=== PATIENT | male | born 1970 | race Caucasian/White ===

== ENCOUNTER → 2017-01-26 | Outpatient (CLI) | payer OTHER ==
[~2017-01-26] MED LIST: ACET-1256 PO; GLC500 PO; INSUINJ4 SQ; LISI-725 PO; OMEP40CA41 PO
--- NOTE | 2017-01-27 06:06 | PAP/PSG TECHNICIAN REPORT ---
[facility] Lead Janitor Polysomnogram Report Study name: None Report date: 01/27/2017 Study date: 01/26/2017 Referring Physician: Zbigniew HANEY M.D. Name: NASIM BEST Interpreting Physician: Maria Antonia Haney M.D. Date of : 1970 Lead Janitor: Kay Burciaga RPSGT. Sex: Male Age: 46 Study Type: PSG Weight: 288 lbs 18 IN Height: 46 years, Height 5' 8" Neck Circum: BMI: 43.79 Medications: LISINOPRIL 40 MG, VICTOZA 18 ML/3 ML, METFORMIN 500 MG, LEVEMIR FLEX PEN 100 UNI/ML, PANTOPRAZOLE 40 MG, SIMVASTATIN 40 MG, ASPIRIN 81 MG Patient History 46 yr-old male here for a baseline/split study. He has had previous sleep testing. 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 He is back to assess his XANDER and is considering gastric bypass surgery. His [place] scale is 4. The test was started on room air. ETCO2 testing is included in this study. Room 3 Parameters Monitored NPSG: E1-M2, E2-M1, Fp1-M2, Fp2-M1, F3-M2, F4-M2, F4-M1, C3-M2, C4-M2, C4-M1, O1-M2, O2-M2, O2-M1, T3-M2, T4-M1, P3-M2, P4-M1, CHIN1, CHIN2, HR, EKG, Legs, PFLOW, SNOR, FLOW, CFLOW, Tidal Volume, THOR, ABDO, SpO2, PLTH, CPRESS, ETCO2 Wave, ETCO2, pH Sleep Architecture Sleep Stages Time at Lights Off 10:36:31 PM STAGES Time (min.) TST (%) Time at Lights On 5:32:01 AM Wake 142.0 -- Total Recording Time (TRT) 415.50 min. N1 17.0 6 Total Sleep Period (TSP) 380.5 min. N2 214.5 78 Total Sleep Time (TST) 273.5min. N3 19.5 7 Awake Time 142.0 min. REM 22.5 8 Wake after Sleep Onset 107.0 min. Sleep Efficiency (SE) 66 % Sleep Onset Latency (JILLIAN) 35.0 min. Number of Stage 1 Shifts None Awakenings 7 Stage Changes 53 Number of REM periods 2 REM 22.5 8 REM Latency 81.5 min. NREM 251.0 92 Body Position Analysis Supine Right Left Side Prone Vertical Total Sleep Time (min.) 19.1 201.5 72.0 273.50 0.0 0.6 Total Sleep Time (%) 0% 74% 26% 100 0% N/A% Total Sleep Time REM (min.) 0.0 0.5 22.0 None 0.0 0.0 Total Sleep Time NREM (min.) 0.0 201.0 50.0 None 0.0 0.0 Intermittent Wake (min.) 19.1 67.1 55.2 None 0.0 0.6 Total Sleep Period (%) 0% None None None None None Arousals Myoclonus (PLM) * Events Count Index Events Count Index Spontaneous 8 2 Events Awake (PLMW) 136 57.5 Respiratory 5 1.3 Events Asleep w/ Arousal (PLMA) 7 1.5 PLM 7 2 Events Asleep w/o Arousal (PLMS) 23 5.0 Snoring 9 2 Total Asleep 30 6.6 Total 27 6 Total 166 24 Respiratory Analysis * CA OA MA CH H RERA Total Count 0 0 0 0 22 5 22 Index 0.0 0.0 0.0 0 4.8 1 5.9 Mean Duration 0.0 0.0 0.0 0.00 14.7 14.9 14.7 Longest Duration 0.0 0.0 0.0 0.00 0.0 16.5 18.9 Respiratory Event Summary Total Supine ~Supine Right Left Prone REM NREM Apneas Count 0 N/A 0 0 0 N/A 0 0 Index 0.0 N/A 0 0.0 0.0 N/A 0 0 Hypopneas (4% Desat) Count 22 N/A 22 7 15 N/A 13 9 Index 4.8 N/A 5 2.1 12.5 N/A 34.7 2.2 Apneas & All Hypopneas Count 22 N/A 22 7 15 N/A 13 9 Index 4.8 N/A 5 2 13 N/A 34.7 2.2 Respiratory Events (Reworker+All Hyp+RERA) Count 22 N/A 27 12 15 N/A 13 9 Index 5.9 N/A 6 3.6 12.5 N/A 34.7 3.3 Respiratory Related Arousal Count 5 N/A 6 6 0 N/A 1 5 Index 1.3 N/A 1 2 0 N/A 3 1 Snoring Analysis Supine Right Left Prone REM NREM Total Snore duration 48.3 min Snores count N/A 1,871 570 N/A 105 2,336 2,441 Snore mean duration 1.2 Sec Snores index N/A 557 475 N/A 280.0 558.4 535.5 TST with snoring (%) 17.7% SpO2 Analysis Total REM NREM Awake <50% 0.0 min. 0.0 min. 0.0 min. 0.0 min. 51 - 60% 0.0 min. 0.0 min. 0.0 min. 0.0 min. 61 - 70% 0.0 min. 0.0 min. 0.0 min. 0.0 min. 71 - 80% 0.0 min. 0.0 min. 0.0 min. 0.0 min. 81 - 90% 194.5 min. 13.4 min. 146.5 min. 34.6 min. 91 - 100% 215.9 min. 9.1 min. 104.5 min. 102.2 min. Average 91 90 90 92 Minimum SpO2 84 84 86 85 Desaturation Event Index 10.0 37.3 3.8 16.5 # Desat. Events below 89% 37 13 13 11 Time(%) with Saturation below 89% 3.9 0.7 2.5 0.6 Time(min.) with Saturation below 89% 15.9 3.0 10.4 2.5 Heart Rate Analysis End Tidal CO2 Analysis Min (bpm) Max (bpm) Average (bpm) TSP (mins) % of TSP Awake 61 250 84 Above 55 mmHg 0.0 0.0 NREM 69 104 81 50-55 mmHg 0.0 0.0 REM 72 87 79 45-50 mmHg 20.8 7.6 Overall 69 104 81 40-45 mmHg 246.7 90.2 35-40 mmHg 5.6 2.0 30-35 mmHg 0.2 0.1 Average ETCO2 0.0 Supplemental O2 Values Minimum O2 level: None Value Start Time End Time Lead Janitor Comments Mr. Best slept in the right and left positions. No cardiac arrhythmias or PLMs noted. No bruxism noted. Snoring was noted and scored as a 3 on a scale of 1 through 5. (0=no snoring, 5=snoring loud enough to be heard through a closed door or down the nguyen way). He did not meet specific Split-Night criteria during the diagnostic portion of this study. He awoke to use the restroom one time during the night. Mr. Best stated that he did not sleep as well as he usually does The final report will be interpreted and signed by a sleep physician. The completed physician report will then be placed in the patient medical record. Therapy (cm H2O) 0 TIB (min.) 415.5 TST (min.) 273.5 Sleep Onset (min.) 35.0 REM Onset From Sleep (min.) 81.5 Sleep Efficiency % 66 Wakefulness (%) 34 Wakefulness (min.) 142.0 NREM 1 (%) 6 NREM 1 (min.) 17.0 NREM 2 (%) 78 NREM 2 (min.) 214.5 NREM 3 (%) 7 NREM 3 (min.) 19.5 REM (%) 8 REM (min.) 22.5 # Arousals 27 Arousal Index 6 # Snore 2,441 Snore Index 535.5 AHI 4.8 AHI Supine N/A AHI Non-Supine 5 NREM AHI 2.2 REM AHI 34.7 RDI 5.9 # Obstructive Apnea 0 # Central Apnea 0 # Mixed Apnea 0 # Hypopneas 22 RERAs 5 Total Respiratory Events 27 Time Below SpO2 89% (min.) 13.4 Mean NREM SpO2 (%) 90 Mean REM SpO2 (%) 90 Mean Sleep SpO2 (%) 90 Min NREM SpO2 (%) 86 Min REM SpO2 (%) 84 Position Supine (min.) 19.1 Position Non-supine (min.) 273.5 LM Index Sleep 6.6 LM Index NREM 7.2 LM Index REM 0.0 Mean Heart Rate (bpm) 81 Min Heart Rate (bpm) 69
--- NOTE | 2017-02-08 08:32 | POLYSOMNOGRAPH REPORT ---
REFERRING PERSON: Dr. Bam Haney. MATERIAL REQUIREMENTS WORKER: Kay Burciaga. Mr. Morgan is a 46-year-old male sent for a possible split night sleep study. He had previous sleep testing. It showed that he had mild sleep apnea with an AHI of 5. He returns for reassessment of possible XANDER as he is considering gastric bypass surgery. His [place] sleepiness scale score on the evening of this study is 4. BMI is 43.79. Following the technical and digital specifications of the [place] [employer] (AASM) a standard diagnostic polysomnogram was performed monitoring EEG, EOG, EMG (chin and leg deviations), oxygen saturation, body position, digital video, respiratory effort and airflow. The sleep Stage and event scoring was based on the AASM Manual for the Scoring of Sleep and Associated Events 2007 edition. Apneas are defined as a drop in the peak thermal sensor excursion by >90% of baseline for at least 10 seconds. Hypopneas were scored using the 4% oxygen desaturation rule (4A-[employer]) and a decrease in the nasal pressure excursions by >30% of baseline for at least 10 seconds. Respiratory effort-related arousal (RERA's) is defined as a sequence of breaths lasting at least 10 seconds characterized by increasing respiratory effort or flattening of the nasal pressure waveform leading to an arousal from sleep when the sequence of breaths does not meet criteria for an apnea or hypopnea. Apnea Hypopnea index (AHI) is defined as the number of apneas and hypopneas occurring in an hour of sleep. Respiratory disturbance index (RDI) is defined as the number of apneas, hypopneas, and RERA's occurring in an hour of sleep. This patient's total sleep period time was 380.5 minutes. Total sleep time was 273.5 minutes. Sleep efficiency was 66%. Latency to sleep onset was 35 minutes with wake after sleep onset of 107 minutes. Total non-REM sleep time was 251 minutes. He spent 6% of that time in N1 sleep, 78% in N2 sleep, and 7% in N3 sleep. REM latency was 81.5 minutes. Total REM sleep time was 22.5 minutes or 8% of total sleep time. There were 27 cortical arousals from sleep. Nine of these arousals were due to snoring, 7 due to periodic limb movements, 5 due to respiratory events and 8 were spontaneous. There were 30 periodic limb movements noted on this test. Limb movement index was 6.6. Limb movement with arousal index was 1.5. There were no central obstructive or mixed apneas on this test. There were 22 hypopnea and 5 RERA. Apnea-hypopnea index was normal at 4.8. RDI was 5.9. This patient does appear to have an element of upper respiratory resistance. 2441 snoring events were recorded. Total sleep time with snoring was 17.7%. Mean saturation was 91% with desaturations to 84%. Saturations were less than 89% for 15.9 minutes of recorded time. This is significant nocturnal hypoxemia. There was no cardiac ectopy noted on this study. This patient's heart rates ranged from a low of 69 beats per minute to a high of 104 beats per minute during sleep. End-tidal CO2 was recorded on this test. End-tidal CO2s were between 45 and 50 mmHg for 7.6% of total sleep period time, between 40 and 45 mmHg for 90.2%, between 35 and 40 mmHg for 2% and between 30 and 35 mmHg for 0.1% of total sleep period time. IMPRESSION AND PLAN: A 46-year-old male without evidence of sleep disordered breathing on this test. He does have an element of mild nocturnal hypoxemia as well as upper airway resistance syndrome. 1. This patient may benefit from oxygen therapy at bedtime. I suspect that if his weight improves, his nocturnal hypoxemia will also improve. Overnight oximetry on oxygen therapy would be helpful to ensure hypoxemia does resolve with treatment.
== END ==
LOC: C.NEUR 21:00
PROVIDERS: ATTEND Family Medicine
DX: G47.33 Obstructive sleep apnea (adult) (pediatric) (principal)

== ENCOUNTER 2018-12-24 12:53 | Inpatient (IN) ==
[2018-12-24] MEDS ORDERED: ACETAMINOPHEN 500 MG TAB PO STA (13:09)
[2018-12-24] MEDS ORDERED: KETOROLAC 30 MG/ML VIAL IV STA (13:09)
[2018-12-24] MEDS ORDERED: SODIUM CHLORIDE 0.9% 1000ML 2,000 ML IV ONE (13:09)
[2018-12-24] MEDS ORDERED: SODIUM CHLORIDE 0.9% 1000ML 1,000 ML IV SCH (13:15)
[2018-12-24 13:31] LABS: Basophils # (auto) 0.02 K/uL (0-0.2); Basophils % (auto) 0.2 %; Eosinophils # (auto) 0.15 K/uL (0-0.5); Eosinophils % (auto) 1.5 %; Hematocrit (blood only) 44.7 % (42-52); Hemoglobin 15.1 g/dL (14.0-18.0); Immature Granulocytes # (auto) 0.03 K/uL (0.00-0.02); Immature Granulocytes % (auto) 0.3 %; Lymphocytes # (auto) 2.04 K/uL (1.2-3.4); Lymphocytes % (auto) 21.1 %; Mean Corpuscular Hgb Conc 33.8 g/dL (32-36); Mean Corpuscular Volume 83.1 fL (80-100); Mean Platelet Volume 10.9 fL (7.4-10.4); Monocytes # (auto) 1.02 K/uL (0.11-0.59); Monocytes % (auto) 10.5 %; Neutrophils # (auto) 6.43 K/uL (1.4-6.5); Neutrophils % (auto) 66.4 %; Platelet Count 217 K/uL (130-400); RDW Coefficient of Variation 14.2 % (11.5-14.5); RDW Standard Deviation 42.9 fL (36.4-46.3); Red Blood Count 5.38 M/uL (4.7-6.1); White Blood Count 9.69 K/uL (4.8-10.8)
[2018-12-24] MEDS ORDERED: DOXYCYCLINE HYCLATE 100 MG CAP PO STA (13:31)
[2018-12-24 13:48] LABS: Albumin Level 3.5 gm/dl (3.4-5.0); BUN Creatinine Ratio 12.3 (10-20); Calcium 8.6 mg/dl (8.5-10.1); Creatinine Clr Calc Pharmacy 45.5 ml/min; Est GFR (African American) 42.1; Est GFR (Non-African American) 36.3; Potassium 4.2 mmol/L (3.5-5.1)
[2018-12-24 14:00] LABS: Albumin Globulin Ratio 0.9 (0.9-2); Bilirubin,Total 0.7 mg/dl (0.2-1); Total Protein 7.5 gm/dl (6.4-8.2); Troponin I 0.057 ng/ml (0-0.045)
[2018-12-24 14:04] LABS: Influenza A virus by PCR Neg for Influ A (Neg); Influenza B virus by PCR Neg for Influ B (Neg)
--- NOTE | 2018-12-24 14:19 | XRay Report ---
XR chest 1V not portable CLINICAL HISTORY: weakness COMPARISON STUDY: 12/29/2015 FINDINGS: The cardiac and mediastinal contours are normal. There is no evidence of focal pulmonary co nsolidation. There is no evidence of failure. No pleural effusions are visualized.[ IMPRESSION: No active disease in the chest. Electronically signed by: Prasanna Rodney M.D. 12/24/2018 2:17 PM
--- NOTE | 2018-12-24 14:20 | XRay Report ---
XR lumbar spine 2-3V CLINICAL HISTORY: Low back pain, weakness, history of tic bite COMPARISON STUDY: No previous studies for comparison. FINDINGS: There are minor degenerative changes. No acute fractures or subluxations are visualized. Th ere is mild gaseous prominence of the bowel. No transition zones are evident. There are surgical clip s within the right upper quadrant consistent with a prior cholecystectomy. There are upper quadrant s uture lines, suggestive of a prior gastric bypass. IMPRESSION: No fractures or subluxations identified. Minor degenerative change. Electronically signed by: Prasanna Rodney M.D. 12/24/2018 2:18 PM
[2018-12-24] MEDS ORDERED: DEXTROSE 50% 50 ML SYRINGE IV ONE (14:23)
[2018-12-24 14:42] LABS: Lyme Ab IgG w/WB Rflx Negative (Negative); Lyme Ab IgM w/WB Rflx Negative (Negative)
[2018-12-24 14:52] LABS: Appearance Urine Turbid (Clear); Bacteria Urine Automated Negative (Negative); Blood Urine Negative (Negative); Color Urine Dark Yellow; Epithelial Cell Urine Auto >30 /lpf (0-5); Glucose Urine UA Negative (Negative); Ketones Urine 1+ (Negative); Leukocyte Esterase Urine 1+ (Negative); Nitrite Urine Positive (Negative); Protein Urine 2+ (Negative); Specific Gravity Urine 1.034 (1.000-1.030); Urobilinogen Urine Negative (Negative)
[2018-12-24 14:58] LABS: Bilirubin Urine 2+ (Negative)
[2018-12-24 15:00] LABS: Ictotest Urine Positive (Negative)
--- NOTE | 2018-12-24 15:09 | Emergency Department Note ---
Entered by Christy Gomez acting as a scribe for History of Present Illness General Chief complaint: Illness Stated complaint: FATIGUE,CLOUDY MIND,PAIN,NAUSEA,LOSS OF APPETITE Time Seen by Provider: 12/24/18 12:59 Source: patient History of Present Illness Provider complaint: dizziness Onset (ago): day(s) (yesterday) Location: head Pain Consistency: + other (persistent) Maximum Pain Intensity: 7 Quality: + other (dizziness) Associated symptoms: + other (nausea, ) Treatments prior to arrival: other (acetaminophen) The patient is a 48 year old white male w/ PMHx s/p gastric bypass and depression who presents to the ED w/ CC of persistent dizziness beginning yesterday. He reports a history of similar dizziness, and states he was told he had a low red blood cell count, but does not think he received blood transfusion. The patient notes headache and diffuse body aches, worst in his lower back. He reports nausea. The patient reports he had been urinating more frequently, which has seemed to resolve. He notes episodes of sweatiness. The patient denies blood in urine, bloody or tarry stools. He reports he found a tick on his left leg yesterday, and was out hiking 5 days ago. The patient states he took 2 Acetaminophen for his headache. He denies contact with anyone who has similar symptoms. Home Medications Home Medications Medication Instructions Recorded Confirmed Type aspirin 81 mg PO DAILY 12/24/18 12/24/18 History bupropion HCl 150 mg PO DAILY 12/24/18 12/24/18 History calcium carbonate-vitamin D3 1 tab PO BID 12/24/18 12/24/18 History [Caltrate 600 + D] escitalopram oxalate 20 mg PO DAILY 12/24/18 12/24/18 History omeprazole 40 mg PO DAILY 12/24/18 12/24/18 History pediatric multivitamin no.76 1 tab PO DAILY 12/24/18 12/24/18 History [Flintstones Complete] simvastatin 40 mg PO HS 12/24/18 12/24/18 History trazodone 150 mg PO HS 12/24/18 12/24/18 History Allergies Allergy/AdvReac Type Severity Reaction Status Date / Time fluoxetine [From Prozac] Allergy Unknown Verified 12/24/18 14:38 Past Med/Surg History Medical History HTN (hypertension) (Chronic) History of diabetes mellitus resolved following bariatric surgery (Chronic) SUMNER (nonalcoholic steatohepatitis) (Chronic) Depression (Chronic) GERD (gastroesophageal reflux disease) (Chronic) XANDER (obstructive sleep apnea) (Chronic) HLD (hyperlipidemia) (Chronic) Depression (Chronic) Anxiety (Chronic) Dyslipidemia (Chronic) GERD (gastroesophageal reflux disease) (Chronic) Surgical History H/O gastric bypass (Chronic) History of cholecystectomy (Chronic) H/O hand surgery (Chronic) H/O colonoscopy (Chronic) History of gastric bypass (Chronic) Family History Father Diabetes Sister Diabetes Social History Preferred Language: Bulgarian Communication Ability: Effective 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 and A total of 10 systems reviewed and were otherwise negative Physical Exam Vital Signs Vital Signs - 24 hr 12/24/18 12:56 12/24/18 13:12 12/24/18 13:25 Temperature 36.3 C L Temperature Source Oral Sepsis Recent Fever Within 48 Hours No Sepsis Action Taken by Nursing No Action Required Pulse Rate 123 H Pulse Rate [Apical] 78 Pulse Rhythm [Apical] Pulse Strength [Apical] Respiratory Rate 18 18 Respiratory Effort / Characteristics Non-Labored Spontaneous Non-Labored Spontaneous Respiratory Depth Normal Normal Respiratory Pattern Regular Blood Pressure - Sitting Blood Pressure- Standing Blood Pressure 97/71 L Blood Pressure [Left Arm] 90/65 L Blood Pressure Mean 79 Blood Pressure Mean [Left Arm] 73 Blood Pressure Position Sitting Blood Pressure Position [Left Arm] Pulse Oximetry 97 95 100 Pulse Oximetry [Right Index Finger] Oxygen Delivery Method Room Air Room Air Oxygen Delivery Method [Right Index Finger] 12/24/18 14:18 12/24/18 15:30 12/24/18 16:40 Temperature Temperature Source Sepsis Recent Fever Within 48 Hours Sepsis Action Taken by Nursing Pulse Rate Pulse Rate [Apical] 67 64 Pulse Rhythm [Apical] Pulse Strength [Apical] Respiratory Rate 20 19 Respiratory Effort / Characteristics Non-Labored Spontaneous Non-Labored Respiratory Depth Normal Normal Respiratory Pattern Regular Regular Blood Pressure - Sitting Blood Pressure- Standing Blood Pressure Blood Pressure [Left Arm] 119/72 105/62 Blood Pressure Mean Blood Pressure Mean [Left Arm] 87 76 Blood Pressure Position Blood Pressure Position [Left Arm] Pulse Oximetry 98 97 Pulse Oximetry [Right Index Finger] Oxygen Delivery Method Room Air Room Air Room Air Oxygen Delivery Method [Right Index Finger] 12/24/18 17:05 12/24/18 17:09 12/24/18 17:27 Temperature 36.6 C Temperature Source Oral Sepsis Recent Fever Within 48 Hours Sepsis Action Taken by Nursing Pulse Rate Pulse Rate [Apical] 65 60 Pulse Rhythm [Apical] Regular Pulse Strength [Apical] Normal Respiratory Rate 20 18 Respiratory Effort / Characteristics Non-Labored Non-Labored Spontaneous Respiratory Depth Normal Normal Respiratory Pattern Regular Regular Blood Pressure - Sitting 109/70 Blood Pressure- Standing 105/68 Blood Pressure Blood Pressure [Left Arm] 117/81 130/82 Blood Pressure Mean Blood Pressure Mean [Left Arm] 93 98 Blood Pressure Position Blood Pressure Position [Left Arm] Sitting Pulse Oximetry 100 98 Pulse Oximetry [Right Index Finger] 100 Oxygen Delivery Method Room Air Room Air Oxygen Delivery Method [Right Index Finger] Room Air 12/24/18 19:47 12/24/18 20:10 12/24/18 23:31 Temperature 36.6 C 36.6 C Temperature Source Oral Oral Sepsis Recent Fever Within 48 Hours Sepsis Action Taken by Nursing Pulse Rate Pulse Rate [Apical] 61 62 Pulse Rhythm [Apical] Pulse Strength [Apical] Respiratory Rate 20 18 Respiratory Effort / Characteristics Non-Labored Spontaneous Respiratory Depth Normal Respiratory Pattern Regular Blood Pressure - Sitting Blood Pressure- Standing Blood Pressure Blood Pressure [Left Arm] 110/70 114/71 Blood Pressure Mean Blood Pressure Mean [Left Arm] 83 85 Blood Pressure Position Blood Pressure Position [Left Arm] Lying Pulse Oximetry 97 97 Pulse Oximetry [Right Index Finger] Oxygen Delivery Method Room Air Room Air Oxygen Delivery Method [Right Index Finger] 12/25/18 00:49 12/25/18 05:01 Temperature 36.8 C Temperature Source Oral Sepsis Recent Fever Within 48 Hours Sepsis Action Taken by Nursing Pulse Rate 63 Pulse Rate [Apical] 69 Pulse Rhythm [Apical] Pulse Strength [Apical] Respiratory Rate 18 Respiratory Effort / Characteristics Respiratory Depth Respiratory Pattern Blood Pressure - Sitting Blood Pressure- Standing Blood Pressure Blood Pressure [Left Arm] 111/69 Blood Pressure Mean Blood Pressure Mean [Left Arm] 83 Blood Pressure Position Blood Pressure Position [Left Arm] Lying Pulse Oximetry 97 Pulse Oximetry [Right Index Finger] Oxygen Delivery Method Room Air Oxygen Delivery Method [Right Index Finger] GENERAL: Well appearing, well nourished, NAD, non-toxic. EYE EXAM: Normal conjunctiva. PERRL, no anisocoria and EOM's grossly intact w/o pain. OROPHARYNX: Moist MM. NECK: Supple, no nuchal rigidity, no adenopathy, non-tender. No signs of meningismus. LUNGS: Clear to auscultation. Normal chest wall mechanics. HEART: NSR, no MRG. ABDOMEN: Abdomen soft, non-tender, normo-active bowel sounds, no masses, no rebound or guarding. BACK: No CVA TTP. SKIN: No rashes and no bruising. UPPER EXTREMITIES: Upper extremities are grossly normal. LOWER EXTREMITIES: No pitting edema. No calf pain. Small pinpoint wound just proximal to lateral aspect of knee, knee is without effusion, good AROM and PROM. No saddle anesthesia, 5/5 strength NEURO EXAM: A and O x3. GCS 15. Moves all 4 extremities on command w/o issue. Course 1302: Past medical records reviewed. The patient was evaluated in room B7, and a complete history and physical examination were performed. 1359: I reevaluated the patient and discussed his test results. 1427: Upon reevaluation, the patient is resting. I discussed test results. They verbalized agreement with the treatment plan. The patient will be admitted for further evaluation. 1432: I reviewed the patient's case with [facility] She will evaluate the patient for further management. Consultations Consultation #1: Briseyda Hair PA-C, [facility] hospitalist Time: 14:32 Administered Medications Doxycycline Hyclate (Vibramycin) 100 mg PO BID [facility]; Protocol Stop: 01/14/19 20:59 Last Admin: 04/16/19 20:03 Dose: 100 mg Documented by: [id number] Sodium Chloride (Nss 1000ml) 1,000 mls @ 110 mls/hr IV .Q9H6M ALPHONSO Stop: 12/25/18 09:40 Last Admin: 12/25/18 00:16 Dose: 110 mls/hr Documented by: [id number] Infusion: 12/25/18 00:16 Dose: 110 mls/hr Documented by: [id number] Admin: 12/24/18 15:55 Dose: 110 mls/hr Documented by: [id number] Pantoprazole Sodium (Protonix) 40 mg PO DAILY ALPHON[facility] Stop: 01/23/19 17:26 Last Admin: 12/24/18 17:55 Dose: 40 mg Documented by: [id number] Trazodone HCl (Desyrel) 150 mg PO HS [facility] Stop: 01/24/19 20:59 Last Admin: 12/24/18 23:04 Dose: 150 mg Documented by: [id number] Discontinued Medications Acetaminophen (Tylenol) 1,000 mg PO NOW STA Stop: 12/24/18 13:10 Last Admin: 12/24/18 13:23 Dose: 1,000 mg Documented by: [id number] Dextrose (Dextrose 50%) 50 ml IV NOW ONE Stop: 12/24/18 14:24 Last Admin: 12/24/18 14:40 Dose: 50 ml Documented by: [id number] Doxycycline Hyclate (Vibramycin) 100 mg PO NOW STA Stop: 12/24/18 13:32 Last Admin: 12/24/18 14:01 Dose: 100 mg Documented by: [id number] Sodium Chloride (Nss 1000ml) 1,000 mls @ 999 mls/hr IV .Q1H1M ALPHONSO Stop: 12/24/18 14:15 Last Admin: 12/24/18 13:19 Dose: Not Given Documented by: [id number] Sodium Chloride (Nss 1000ml) 2,000 mls @ 999 mls/hr IV .Q2H1M ONE Stop: 12/24/18 15:09 Last Infusion: 12/24/18 15:45 Dose: 0 mls/hr Documented by: [id number] Admin: 12/24/18 13:19 Dose: 999 mls/hr Documented by: [id number] Ketorolac Tromethamine (Toradol) 30 mg IV NOW STA Stop: 12/24/18 13:10 Last Admin: 12/24/18 13:23 Dose: 30 mg Documented by: [id number] Tramadol HCl (Ultram) Confirm Administered Dose 50 mg .ROUTE .STK-MED ONE Stop: 12/24/18 20:03 Last Admin: 12/24/18 20:03 Dose: 50 mg Documented by: [id number] Medical Decision Making Medical Records Attestation: I reviewed the patient's medical records. Home Medications Current Medication List: was personally reviewed by me Laboratory Data Attestation: I reviewed the patient's lab results. Result diagrams: 12/24/18 13:10 12/24/18 13:10 Lab Results 12/24/18 12/24/18 12/24/18 Range/Units 13:10 13:10 13:10 WBC 9.69 (4.8-10.8) K/uL RBC 5.38 (4.7-6.1) M/uL Hgb 15.1 (14.0-18.0) g/dL Hct 44.7 (42-52) % MCV 83.1 (80-100) fL MCH 28.1 (25-34) pg MCHC 33.8 (32-36) g/dL RDW Std Deviation 42.9 (36.4-46.3) fL RDW Coeff of Janette 14.2 (11.5-14.5) % Plt Count 217 (130-400) K/uL MPV 10.9 H (7.4-10.4) fL Immature Gran % (Auto) 0.3 % Neut % (Auto) 66.4 % Lymph % (Auto) 21.1 % [place] % (Auto) 10.5 % Eos % (Auto) 1.5 % Baso % (Auto) 0.2 % Immature Gran # (Auto) 0.03 H (0.00-0.02) K/uL Neut # (Auto) 6.43 (1.4-6.5) K/uL Lymph # (Auto) 2.04 (1.2-3.4) K/uL [place] # (Auto) 1.02 H (0.11-0.59) K/uL Eos # (Auto) 0.15 (0-0.5) K/uL Baso # (Auto) 0.02 (0-0.2) K/uL Absolute Nucleated RBC 0.00 (0-0) K/uL Nucleated RBC % (auto) 0.0 % ESR (0-14) mm/hr PT (9.0-12.0) Seconds INR (0.9-1.1) APTT (21.0-31.0) Seconds PTT Ratio Sodium 139 (136-145) mmol/L Potassium 4.2 (3.5-5.1) mmol/L Chloride 107 (98-107) mmol/L Carbon Dioxide 25 (21-32) mmol/L Anion Gap 7.0 (3-11) BUN 26 H (7-18) mg/dl Creatinine 2.09 H (0.6-1.4) mg/dl Est Cr Clr Drug Dosing 45.5 ml/min Est GFR ( Amer) 42.1 Est GFR (Non-Af Amer) 36.3 BUN/Creatinine Ratio 12.3 (10-20) Glucose 56 L (70-99) mg/dl POC Glucose (70-99) Calcium 8.6 (8.5-10.1) mg/dl Total Bilirubin 0.7 (0.2-1) mg/dl AST 22 (15-37) U/L ALT 30 (12-78) U/L Alkaline Phosphatase 89 (45-117) U/L Total Creatine Kinase 148 (39-308) U/L Troponin I 0.057 H* (0-0.045) ng/ml C-Reactive Protein (0-0.29) mg/dl Total Protein 7.5 (6.4-8.2) gm/dl Albumin 3.5 (3.4-5.0) gm/dl Globulin 4.0 (2.5-4.0) gm/dl Albumin/Globulin Ratio 0.9 (0.9-2) TSH 2.320 (0.300-4.500) uIu/ml Urine Color Urine Appearance (Clear) Urine pH (4.5-7.5) Ur Specific [place] (1.000-1.030) Urine Protein (Negative) Urine Glucose (UA) (Negative) Urine Ketones (Negative) Urine Blood (Negative) Urine Nitrite (Negative) Urine Bilirubin (Negative) Urine Urobilinogen (Negative) Ur Leukocyte Esterase (Negative) Urine WBC (Auto) (0-5) /hpf Urine RBC (Auto) (0-4) /hpf U Hyaline Cast (Auto) (0-5) /lpf U Epithel Cells (Auto) (0-5) /lpf Urine Bacteria (Auto) (Negative) Ur Renal Epithelial Cell (0-5) /lpf Granular Casts (0) /lpf Urine Mucus (None Prsent) Ur Random Creatinine mg/dl U Random Total Protein (0-11.9) mg/dl Ur Random Sodium mmol/L Protein/Creatinin Ratio (0-0.2) Lyme Disease IgG Ab Negative (Negative) Lyme Disease IgM Ab Negative (Negative) Influenza Type A (PCR) (Neg) Influenza Type B (PCR) (Neg) 12/24/18 12/24/18 12/24/18 Range/Units 13:10 13:10 13:15 WBC (4.8-10.8) K/uL RBC (4.7-6.1) M/uL Hgb (14.0-18.0) g/dL Hct (42-52) % MCV (80-100) fL MCH (25-34) pg MCHC (32-36) g/dL RDW Std Deviation (36.4-46.3) fL RDW Coeff of Janette (11.5-14.5) % Plt Count (130-400) K/uL MPV (7.4-10.4) fL Immature Gran % (Auto) % Neut % (Auto) % Lymph % (Auto) % [place] % (Auto) % Eos % (Auto) % Baso % (Auto) % Immature Gran # (Auto) (0.00-0.02) K/uL Neut # (Auto) (1.4-6.5) K/uL Lymph # (Auto) (1.2-3.4) K/uL [place] # (Auto) (0.11-0.59) K/uL Eos # (Auto) (0-0.5) K/uL Baso # (Auto) (0-0.2) K/uL Absolute Nucleated RBC (0-0) K/uL Nucleated RBC % (auto) % ESR (0-14) mm/hr PT 10.5 (9.0-12.0) Seconds INR 1.0 (0.9-1.1) APTT 26.9 (21.0-31.0) Seconds PTT Ratio 1.0 Sodium (136-145) mmol/L Potassium (3.5-5.1) mmol/L Chloride (98-107) mmol/L Carbon Dioxide (21-32) mmol/L Anion Gap (3-11) BUN (7-18) mg/dl Creatinine (0.6-1.4) mg/dl Est Cr Clr Drug Dosing ml/min Est GFR ( Amer) Est GFR (Non-Af Amer) BUN/Creatinine Ratio (10-20) Glucose (70-99) mg/dl POC Glucose (70-99) Calcium (8.5-10.1) mg/dl Total Bilirubin (0.2-1) mg/dl AST (15-37) U/L ALT (12-78) U/L Alkaline Phosphatase (45-117) U/L Total Creatine Kinase (39-308) U/L Troponin I (0-0.045) ng/ml C-Reactive Protein 0.96 H (0-0.29) mg/dl Total Protein (6.4-8.2) gm/dl Albumin (3.4-5.0) gm/dl Globulin (2.5-4.0) gm/dl Albumin/Globulin Ratio (0.9-2) TSH (0.300-4.500) uIu/ml Urine Color Urine Appearance (Clear) Urine pH (4.5-7.5) Ur Specific [place] (1.000-1.030) Urine Protein (Negative) Urine Glucose (UA) (Negative) Urine Ketones (Negative) Urine Blood (Negative) Urine Nitrite (Negative) Urine Bilirubin (Negative) Urine Urobilinogen (Negative) Ur Leukocyte Esterase (Negative) Urine WBC (Auto) (0-5) /hpf Urine RBC (Auto) (0-4) /hpf U Hyaline Cast (Auto) (0-5) /lpf U Epithel Cells (Auto) (0-5) /lpf Urine Bacteria (Auto) (Negative) Ur Renal Epithelial Cell (0-5) /lpf Granular Casts (0) /lpf Urine Mucus (None Prsent) Ur Random Creatinine mg/dl U Random Total Protein (0-11.9) mg/dl Ur Random Sodium mmol/L Protein/Creatinin Ratio (0-0.2) Lyme Disease IgG Ab (Negative) Lyme Disease IgM Ab (Negative) Influenza Type A (PCR) Neg for Influ A (Neg) Influenza Type B (PCR) Neg for Influ B (Neg) 12/24/18 12/24/18 12/24/18 Range/Units 14:00 15:50 16:42 WBC (4.8-10.8) K/uL RBC (4.7-6.1) M/uL Hgb (14.0-18.0) g/dL Hct (42-52) % MCV (80-100) fL MCH (25-34) pg MCHC (32-36) g/dL RDW Std Deviation (36.4-46.3) fL RDW Coeff of Janette (11.5-14.5) % Plt Count (130-400) K/uL MPV (7.4-10.4) fL Immature Gran % (Auto) % Neut % (Auto) % Lymph % (Auto) % [place] % (Auto) % Eos % (Auto) % Baso % (Auto) % Immature Gran # (Auto) (0.00-0.02) K/uL Neut # (Auto) (1.4-6.5) K/uL Lymph # (Auto) (1.2-3.4) K/uL [place] # (Auto) (0.11-0.59) K/uL Eos # (Auto) (0-0.5) K/uL Baso # (Auto) (0-0.2) K/uL Absolute Nucleated RBC (0-0) K/uL Nucleated RBC % (auto) % ESR (0-14) mm/hr PT (9.0-12.0) Seconds INR (0.9-1.1) APTT (21.0-31.0) Seconds PTT Ratio Sodium (136-145) mmol/L Potassium (3.5-5.1) mmol/L Chloride (98-107) mmol/L Carbon Dioxide (21-32) mmol/L Anion Gap (3-11) BUN (7-18) mg/dl Creatinine (0.6-1.4) mg/dl Est Cr Clr Drug Dosing ml/min Est GFR ( Amer) Est GFR (Non-Af Amer) BUN/Creatinine Ratio (10-20) Glucose (70-99) mg/dl POC Glucose 99 (70-99) Calcium (8.5-10.1) mg/dl Total Bilirubin (0.2-1) mg/dl AST (15-37) U/L ALT (12-78) U/L Alkaline Phosphatase (45-117) U/L Total Creatine Kinase (39-308) U/L Troponin I 0.095 H* (0-0.045) ng/ml C-Reactive Protein (0-0.29) mg/dl Total Protein (6.4-8.2) gm/dl Albumin (3.4-5.0) gm/dl Globulin (2.5-4.0) gm/dl Albumin/Globulin Ratio (0.9-2) TSH (0.300-4.500) uIu/ml Urine Color Dark Yellow Urine Appearance Turbid H (Clear) Urine pH 5.0 (4.5-7.5) Ur Specific [place] 1.034 H (1.000-1.030) Urine Protein 2+ H (Negative) Urine Glucose (UA) Negative (Negative) Urine Ketones 1+ H (Negative) Urine Blood Negative (Negative) Urine Nitrite Positive H (Negative) Urine Bilirubin 2+ H (Negative) Urine Urobilinogen Negative (Negative) Ur Leukocyte Esterase 1+ H (Negative) Urine WBC (Auto) 10-30 H (0-5) /hpf Urine RBC (Auto) 5-10 H (0-4) /hpf U Hyaline Cast (Auto) 10-30 H (0-5) /lpf U Epithel Cells (Auto) >30 H (0-5) /lpf Urine Bacteria (Auto) Negative (Negative) Ur Renal Epithelial Cell 0-5 (0-5) /lpf Granular Casts 1-5 H (0) /lpf Urine Mucus Present H (None Prsent) Ur Random Creatinine mg/dl U Random Total Protein (0-11.9) mg/dl Ur Random Sodium mmol/L Protein/Creatinin Ratio (0-0.2) Lyme Disease IgG Ab (Negative) Lyme Disease IgM Ab (Negative) Influenza Type A (PCR) (Neg) Influenza Type B (PCR) (Neg) 12/24/18 12/24/18 12/24/18 Range/Units 17:27 17:30 17:38 WBC (4.8-10.8) K/uL RBC (4.7-6.1) M/uL Hgb (14.0-18.0) g/dL Hct (42-52) % MCV (80-100) fL MCH (25-34) pg MCHC (32-36) g/dL RDW Std Deviation (36.4-46.3) fL RDW Coeff of Janette (11.5-14.5) % Plt Count (130-400) K/uL MPV (7.4-10.4) fL Immature Gran % (Auto) % Neut % (Auto) % Lymph % (Auto) % [place] % (Auto) % Eos % (Auto) % Baso % (Auto) % Immature Gran # (Auto) (0.00-0.02) K/uL Neut # (Auto) (1.4-6.5) K/uL Lymph # (Auto) (1.2-3.4) K/uL [place] # (Auto) (0.11-0.59) K/uL Eos # (Auto) (0-0.5) K/uL Baso # (Auto) (0-0.2) K/uL Absolute Nucleated RBC (0-0) K/uL Nucleated RBC % (auto) % ESR 14 (0-14) mm/hr PT (9.0-12.0) Seconds INR (0.9-1.1) APTT (21.0-31.0) Seconds PTT Ratio Sodium (136-145) mmol/L Potassium (3.5-5.1) mmol/L Chloride (98-107) mmol/L Carbon Dioxide (21-32) mmol/L Anion Gap (3-11) BUN (7-18) mg/dl Creatinine (0.6-1.4) mg/dl Est Cr Clr Drug Dosing ml/min Est GFR ( Amer) Est GFR (Non-Af Amer) BUN/Creatinine Ratio (10-20) Glucose (70-99) mg/dl POC Glucose 74 (70-99) Calcium (8.5-10.1) mg/dl Total Bilirubin (0.2-1) mg/dl AST (15-37) U/L ALT (12-78) U/L Alkaline Phosphatase (45-117) U/L Total Creatine Kinase (39-308) U/L Troponin I (0-0.045) ng/ml C-Reactive Protein (0-0.29) mg/dl Total Protein (6.4-8.2) gm/dl Albumin (3.4-5.0) gm/dl Globulin (2.5-4.0) gm/dl Albumin/Globulin Ratio (0.9-2) TSH (0.300-4.500) uIu/ml Urine Color Urine Appearance (Clear) Urine pH (4.5-7.5) Ur Specific [place] (1.000-1.030) Urine Protein (Negative) Urine Glucose (UA) (Negative) Urine Ketones (Negative) Urine Blood (Negative) Urine Nitrite (Negative) Urine Bilirubin (Negative) Urine Urobilinogen (Negative) Ur Leukocyte Esterase (Negative) Urine WBC (Auto) (0-5) /hpf Urine RBC (Auto) (0-4) /hpf U Hyaline Cast (Auto) (0-5) /lpf U Epithel Cells (Auto) (0-5) /lpf Urine Bacteria (Auto) (Negative) Ur Renal Epithelial Cell (0-5) /lpf Granular Casts (0) /lpf Urine Mucus (None Prsent) Ur Random Creatinine 183.0 mg/dl U Random Total Protein 14.9 H (0-11.9) mg/dl Ur Random Sodium 12 mmol/L Protein/Creatinin Ratio 0.1 (0-0.2) Lyme Disease IgG Ab (Negative) Lyme Disease IgM Ab (Negative) Influenza Type A (PCR) (Neg) Influenza Type B (PCR) (Neg) 12/24/18 12/24/18 Range/Units 20:00 22:04 WBC (4.8-10.8) K/uL RBC (4.7-6.1) M/uL Hgb (14.0-18.0) g/dL Hct (42-52) % MCV (80-100) fL MCH (25-34) pg MCHC (32-36) g/dL RDW Std Deviation (36.4-46.3) fL RDW Coeff of Ajnette (11.5-14.5) % Plt Count (130-400) K/uL MPV (7.4-10.4) fL Immature Gran % (Auto) % Neut % (Auto) % Lymph % (Auto) % [place] % (Auto) % Eos % (Auto) % Baso % (Auto) % Immature Gran # (Auto) (0.00-0.02) K/uL Neut # (Auto) (1.4-6.5) K/uL Lymph # (Auto) (1.2-3.4) K/uL [place] # (Auto) (0.11-0.59) K/uL Eos # (Auto) (0-0.5) K/uL Baso # (Auto) (0-0.2) K/uL Absolute Nucleated RBC (0-0) K/uL Nucleated RBC % (auto) % ESR (0-14) mm/hr PT (9.0-12.0) Seconds INR (0.9-1.1) APTT (21.0-31.0) Seconds PTT Ratio Sodium (136-145) mmol/L Potassium (3.5-5.1) mmol/L Chloride (98-107) mmol/L Carbon Dioxide (21-32) mmol/L Anion Gap (3-11) BUN (7-18) mg/dl Creatinine (0.6-1.4) mg/dl Est Cr Clr Drug Dosing ml/min Est GFR ( Amer) Est GFR (Non-Af Amer) BUN/Creatinine Ratio (10-20) Glucose (70-99) mg/dl POC Glucose 82 (70-99) Calcium (8.5-10.1) mg/dl Total Bilirubin (0.2-1) mg/dl AST (15-37) U/L ALT (12-78) U/L Alkaline Phosphatase (45-117) U/L Total Creatine Kinase (39-308) U/L Troponin I 0.099 H* (0-0.045) ng/ml C-Reactive Protein (0-0.29) mg/dl Total Protein (6.4-8.2) gm/dl Albumin (3.4-5.0) gm/dl Globulin (2.5-4.0) gm/dl Albumin/Globulin Ratio (0.9-2) TSH (0.300-4.500) uIu/ml Urine Color Urine Appearance (Clear) Urine pH (4.5-7.5) Ur Specific [place] (1.000-1.030) Urine Protein (Negative) Urine Glucose (UA) (Negative) Urine Ketones (Negative) Urine Blood (Negative) Urine Nitrite (Negative) Urine Bilirubin (Negative) Urine Urobilinogen (Negative) Ur Leukocyte Esterase (Negative) Urine WBC (Auto) (0-5) /hpf Urine RBC (Auto) (0-4) /hpf U Hyaline Cast (Auto) (0-5) /lpf U Epithel Cells (Auto) (0-5) /lpf Urine Bacteria (Auto) (Negative) Ur Renal Epithelial Cell (0-5) /lpf Granular Casts (0) /lpf Urine Mucus (None Prsent) Ur Random Creatinine mg/dl U Random Total Protein (0-11.9) mg/dl Ur Random Sodium mmol/L Protein/Creatinin Ratio (0-0.2) Lyme Disease IgG Ab (Negative) Lyme Disease IgM Ab (Negative) Influenza Type A (PCR) (Neg) Influenza Type B (PCR) (Neg) Imaging Data Radiologist's Impression: Radiology results as stated below per my review and the radiologist's interpretation: XR chest 1V not portable CLINICAL HISTORY: weakness COMPARISON STUDY: 12/29/2015 FINDINGS: The cardiac and mediastinal contours are normal. There is no evidence of focal pulmonary consolidation. There is no evidence of failure. No pleural e ffusions are visualized.[ IMPRESSION: No active disease in the chest. Electronically signed by: Prasanna Rodney M.D. 12/24/2018 2:17 PM XR lumbar spine 2-3V CLINICAL HISTORY: Low back pain, weakness, history of tic bite COMPARISON STUDY: No previous studies for comparison. FINDINGS: There are minor degenerative changes. No acute fractures or subluxations are visualized. There is mild gaseous prominence of the bowel. No transition zones are evident. There are surgical clips within the right upper quadrant consistent with a prior cholecystectomy. There are upper quadrant suture lines, suggestive of a prior gastric bypass. IMPRESSION: No fractures or subluxations identified. Minor degenerative change. Electronically signed by: Prasanna Rodney M.D. 12/24/2018 2:18 PM ECG Data Attestation: I personally reviewed and interpreted this ECG as follows: Indication: weakness Rate (beats per minute): 75 Rhythm: normal sinus Findings: + other (normal axis) and + Q waves (lead 3) Comparison ECG Date: from (01/19/16) Change: the following changes noted (rate is now slower, no other change) Blood Pressure Blood Pressure Findings: Low blood pressure Blood Pressure Disposition: further management by hospitalist MDM Narrative The patient is a 48 year old white male w/ PMHx s/p gastric bypass and depression who presents to the ED w/ CC of persistent dizziness beginning yesterday. Differential includes acute coronary syndrome, myocardial infarction, CVA, TIA, anemia, infection, pneumonia, UTI, pyelonephritis, poor nutrition, dehydration, electrolyte disturbance,hypoglycemia. Patient was seen and evaluated the bedside. The patient has complained of some mild persistent dizziness and associated patient does not any saddle anesthesia or bowel or bladder incontinence. Patient has normal strength and sensation in the lower patient had blood work completed. The patient does relate that he had a recent tick attached for approximately 5 days before removal. I am concerned about tickborne illness the patient did a blood work completed along with a Lyme's and flu was given IV fluids and doxycycline. Patient does have notable AK I and associated elevated troponin. There is no evidence of heart block on EKG this may be related to either the acute kidney injury and/or a Lyme's carditis potentially. I did convey all of the findings to the on-call hospitalist. I did relate that given the patient is having some back pain could be having some sort of dissection but to be less likely as the patient is well perfused and does not appear in extremis and his pain is not very severe. Patient did respond well to IV fluids. Impression & Plan VADIM (acute kidney injury), Elevated troponin, Tick-borne disease Discharge Plan Visit Data *Final* Discharge Date/Time: 12/24/18 17:09 Chief Complaint: Illness Stated Complaint: FATIGUE,CLOUDY MIND,PAIN,NAUSEA,LOSS OF APPETITE ED Provider: Andrea Mejias Discharge Problem: VADIM (acute kidney injury), Elevated troponin, Tick-borne disease Patient Disposition: Admitted As Inpatient Discharge Instructions Interventions: ED Discharge Assessment Last Done: 12/24/18 17:09 The scribe's documentation has been prepared under my direction and personally reviewed by me in its entirety. I confirm that the note above accurately reflects all work, treatment, procedures, and medical decision making performed by me.
[2018-12-24 15:20] LABS: Mucus Urine Present (None Prsent); Renal Epithelial Cells Urine 0-5 /lpf (0-5)
--- NOTE | 2018-12-24 15:54 | History & Physical Report ---
Date of Service December 24, 2018 Assessment & Plan (1) VADIM (acute kidney injury): This is a 48-year-old male who has significant PMH of HLD, GERD, depression, history of gastric bypass, history of T2 DM resolved by gastric bypass, XANDER treated with CPAP, Red who presents to [facility] secondary to ill feeling times 4 days. Known tick bite with tick removal yesterday In ED initially hypotensive and tachycardic upon arrival Received 2L of IVF hemodynamics improved Lab work significant for AK I with BUN 26 and creatinine 2.09, elevated troponin 0.057, CBC relatively unremarkable, urinalysis with 2+ protein, 1+ ketones, nitrate, leukoesterase, bacteria negative, positive RBC, granular cast VADIM etiology unknown question prerenal and dehydration versus intrinsic kidney injury Admit to med/surg telemetry To new IVF 110 cc/h for additional 2L Follow BMP Check FeNa, urine sodium, urine creatinine, spot protein to creatinine ratio, peripheral smear, urine cytology Repeat troponin Repeat urine in a.m. If renal function does not improve consult nephrology in a.m. (2) Elevated troponin: No chest pain or ECG change May be in setting of AK I, volume depletion, demand ischemia Repeat troponin given recent 2L of IVF (3) Tick-borne disease: Patient with known tick bite Symptoms concerning for tickborne illness including malaise, arthralgias, fatigue Initial Lyme negative; however given tick bites very recent titer is likely to be negative Treat with doxycycline 100 mg p.o. twice daily times 21 days (4) HLD (hyperlipidemia): On statin (5) Depression: Mood stable, mildly anxious Continue Wellbutrin and escitalopram (6) GERD (gastroesophageal reflux disease): Hold PPI in setting of VADIM (7) History of diabetes mellitus resolved following bariatric surgery: Last A1C 5.3 09/2018 Has not taking hypoglycemic agents for 1.[address] on diabetic diet A1c in am Monitor accuchecks AC/HS if okay will discontinue (8) DVT prophylaxis: SCDS/encourage ambulation Pt currently low risk for VTE, reevaluate daily for need Disposition: discharge to home when able Follow up: PCP Dr. Galo upon discharge Patient was seen and examined in collaboration with Dr. Galindo, please see addendum Starting 12/24/18 pt will be under the care of Dr. Katy History of Present Illness Chief Complaint: Ill feeling x 4 days. Primary Care Provider: Albert Luis DO This is a 48-year-old male who has significant PMH of HLD, GERD, depression, history of gastric bypass, history of T2 DM resolved by gastric bypass, XANDER treated with CPAP, Red who presents to [facility] secondary to ill feeling times 4 days. Patient states symptoms started approximately on Sunday when he developed ill feeling, tired, fatigued, lethargic, arthralgias. He also was nauseated and had significantly decreased appetite. He states he has not had anything to eat or drink since Sunday evening, except this morning. This morning he had a breakfast sandwich, banana & OJ. There are he complains of sweats, dizziness when going from sitting to standing quickly, allergy-like symptoms with sinus congestion and rhinorrhea, mild frontal headache, low back discomfort with movement. He denies any documented fever, chills, syncope, neck stiffness, chest pain, palpitations, shortness of breath at rest or exertion, cough, hemoptysis, emesis, diarrhea, abdominal pain, dysuria, increased urgency or frequency with urination, river hematuria. He did note this morning his urine was dark in color. He denies any recent change in medications or taking significant amount of NSAIDs. Of significant note on Sunday evening he did remove a tick from his left lateral leg. He feels it was likely present for approximately 5 days as that was the last time he was out hiking in the [place]. He describes tick as a medium size, mildly engorged. Still has redness around the tick site but no other known rash. Allergies Allergy/AdvReac Type Severity Reaction Status Date / Time fluoxetine [From Prozac] Allergy Unknown Verified 12/24/18 14:38 Home Medications Home Medications Medication Instructions Recorded Confirmed Type aspirin 81 mg PO DAILY 12/24/18 12/24/18 History bupropion HCl 150 mg PO DAILY 12/24/18 12/24/18 History calcium carbonate-vitamin D3 1 tab PO BID 12/24/18 12/24/18 History [Caltrate 600 + D] escitalopram oxalate 20 mg PO DAILY 12/24/18 12/24/18 History omeprazole 40 mg PO DAILY 12/24/18 12/24/18 History pediatric multivitamin no.76 1 tab PO DAILY 12/24/18 12/24/18 History [Flintstones Complete] simvastatin 40 mg PO HS 12/24/18 12/24/18 History trazodone 150 mg PO HS 12/24/18 12/24/18 History Past Med/Surg History Medical History HTN (hypertension) (Chronic) History of diabetes mellitus resolved following bariatric surgery (Chronic) RED (nonalcoholic steatohepatitis) (Chronic) Depression (Chronic) GERD (gastroesophageal reflux disease) (Chronic) XANDER (obstructive sleep apnea) (Chronic) HLD (hyperlipidemia) (Chronic) Depression (Chronic) Anxiety (Chronic) Dyslipidemia (Chronic) GERD (gastroesophageal reflux disease) (Chronic) Surgical History H/O gastric bypass (Chronic) History of cholecystectomy (Chronic) H/O hand surgery (Chronic) H/O colonoscopy (Chronic) History of gastric bypass (Chronic) Family History Father Diabetes Sister Diabetes Social History Preferred Language: Upper Sorbian Communication Ability: Effective Traffic Checker Required: No Beliefs That Will Affect Care: None marital status: Single Current Living Situation: Family Current Living Situation Comment: Lives with 17 yr old son Other Information That Helps Us Care for You: No Feels Safe at Home: Yes Safety Concerns: Feels Safe At This Time Smoking Status: Former smoker Hx Alcohol Use: Yes Hx Substance Use: Yes (Medicinal marijuana) Review of Systems At least ten systems were reviewed and negative except as indicated in HPI above. Physical Exam 2 Vital Signs (Past 24 Hours): Last Vital Signs Temp 36.3 C L 12/24/18 12:56 Pulse 67 12/24/18 14:18 Resp 20 12/24/18 14:18 BP 119/72 12/24/18 14:18 Pulse Ox 98 12/24/18 14:18 Physical Exam: Gen: WD/WN, M, NAD, sitting up in bed, pleasant, conversing easily Head: Normocephalic, Atraumatic Eyes: Sclera normal, no conjunctival injection, PERRLA, EOMI ENT: Gross hearing intact, normal pharynx, mucous membranes moist Neck: supple, no adenopathy, No JVD, no bruit, Resp: Clear to auscultation b/l, no wheeze, rales, rhonchi. 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 Extremities: No edema bilaterally Skin: warm, moist, no rash, negative turgor, cap refill < 2sec, LLE lateral to knee area of tick insertion (head still present) with surrounding erythema, no pain or warmth noted Neuro: Alert and oriented x 3, speech normal, good mood/affect, cran nerve 2-12 intact grossly : deferred Results & Data Laboratory Results Short CBC 12/24/18 Range/Units 13:10 WBC 9.69 (4.8-10.8) K/uL Hgb 15.1 (14.0-18.0) g/dL Hct 44.7 (42-52) % Plt Count 217 (130-400) K/uL BMP 12/24/18 13:10 Sodium 139 Potassium 4.2 Chloride 107 Carbon Dioxide 25 BUN 26 H Creatinine 2.09 H Glucose 56 L Calcium 8.6 Cardiac Enzymes 12/24/18 Range/Units 13:10 Total Creatine Kinase 148 (39-308) U/L Troponin I 0.057 H* (0-0.045) ng/ml Liver Function 12/24/18 Range/Units 13:10 Total Bilirubin 0.7 (0.2-1) mg/dl AST 22 (15-37) U/L ALT 30 (12-78) U/L Alkaline Phosphatase 89 (45-117) U/L Albumin 3.5 (3.4-5.0) gm/dl Urine 12/24/18 Range/Units 14:00 Urine Color Dark Yellow Urine Appearance Turbid H (Clear) Urine pH 5.0 (4.5-7.5) Ur Specific [place] 1.034 H (1.000-1.030) Urine Protein 2+ H (Negative) Urine Glucose (UA) Negative (Negative) Diagnostic Findings CXR: IMPRESSION: No active disease in the chest. Lumbar Spine Xray: IMPRESSION: No fractures or subluxations identified. Minor degenerative change. Medications Administered Discontinued Medications Acetaminophen (Tylenol) 1,000 mg PO NOW STA Stop: 12/24/18 13:10 Last Admin: 12/24/18 13:23 Dose: 1,000 mg Documented by: [id number] Dextrose (Dextrose 50%) 50 ml IV NOW ONE Stop: 12/24/18 14:24 Last Admin: 12/24/18 14:40 Dose: 50 ml Documented by: [id number] Doxycycline Hyclate (Vibramycin) 100 mg PO NOW STA Stop: 12/24/18 13:32 Last Admin: 12/24/18 14:01 Dose: 100 mg Documented by: [id number] Sodium Chloride (Nss 1000ml) 1,000 mls @ 999 mls/hr IV .Q1H1M ALPHONSO Stop: 12/24/18 14:15 Last Admin: 12/24/18 13:19 Dose: Not Given Documented by: [id number] Sodium Chloride (Nss 1000ml) 2,000 mls @ 999 mls/hr IV .Q2H1M ONE Stop: 12/24/18 15:09 Last Infusion: 12/24/18 15:45 Dose: 0 mls/hr Documented by: [id number] Admin: 12/24/18 13:19 Dose: 999 mls/hr Documented by: [id number] Ketorolac Tromethamine (Toradol) 30 mg IV NOW STA Stop: 12/24/18 13:10 Last Admin: 12/24/18 13:23 Dose: 30 mg Documented by: [id number] ECG Rate (beats per minute): 75 Rhythm: normal sinus Code Status & VTE Plan Code Status Full Code VTE Prophylaxis Plan VTE Prophylaxis will be ordered: No Reason for no VTE drug order: Treatment not indicated Reason for no VTE mechanical prophylaxis: Treatment not indicated Supervising Physician Co-Signing Physician Notes I have seen and examined the patient and have discussed the case with the provider above. I agree with the assessment and plan as stated. Full skin exam was unremarkable aside from some very mild petechial streaking on the medial upper left arm and a small bite wound with pinpoint scab and no surrounding erythema. Headache, mental fogginess but oriented, new acute back pain, +malaise. Denies fever or chills, denies rash. Symptoms have been similar for the last 3 days with a worsening of his concentration today which prompted his presentation. Rickettsial panel sent, IVF for VADIM thought prerenal in nature--FeNa is <1% and he has not been eating or drinking well. Reports nausea but no other GI issues. L spine xray unremarkable. If current treatment doesn't improve pain, may consider further workup/imaging as indicated. Cont doxy and plan as above. DO Mateo (1) Depression Active/Remission status: remission status unspecified Depression Type: major depressive disorder Major depression recurrence: unspecified whether recurrent Qualified Code(s): F32.9 - Major depressive disorder, single episode, unspecified (2) HLD (hyperlipidemia) Hyperlipidemia type: unspecified Qualified Code(s): E78.5 - Hyperlipidemia, unspecified (3) GERD (gastroesophageal reflux disease) Esophagitis presence: esophagitis presence not specified Qualified Code(s): K21.9 - Gastro-esophageal reflux disease without esophagitis
[2018-12-24] MEDS: SODIUM CHLORIDE 0.9% 1000ML 1,000 ML IV SCH (15:55)
[2018-12-24] MEDS ORDERED: ACETAMINOPHEN 325 MG TAB PO PRN (17:27)
[2018-12-24] MEDS ORDERED: GLUCOSE 40% GEL 15 GM TUBE PO PRN (17:27)
[2018-12-24] MEDS ORDERED: POLYETHYLENE (MIRALAX) 17 GM PACK PO PRN (17:27)
[2018-12-24] MEDS ORDERED: GLUCAGON FOR INJ 1 MG VIAL SQ PRN (17:27)
[2018-12-24] MEDS ORDERED: CARBOHYDRATES FOR HYPOGLYCEMIA PO PRN (17:27)
[2018-12-24] MEDS ORDERED: DEXTROSE 50% 50 ML SYRINGE IV PRN (17:27)
[2018-12-24] MEDS ORDERED: ONDANSETRON INJ 2 MG/ML 2 ML VIAL IV PRN (17:27)
[2018-12-24] MEDS ORDERED: GLUCOSE 10 TABS/TUBE PO PRN (17:27)
[2018-12-24] MEDS: PANTOprazole 40 MG TAB PO SCH (17:55)
[2018-12-24 18:05] LABS: Partial Thromboplastin Time 26.9 Seconds (21.0-31.0); Prothrombin Time 10.5 Seconds (9.0-12.0)
[2018-12-24 18:10] LABS: Total Protein Urine Random 14.9 mg/dl (0-11.9)
[2018-12-24] MEDS ORDERED: TRAMADOL HCL 50 MG TABLET PO PRN (19:37)
[2018-12-24] MEDS ORDERED: TRAMADOL HCL 50 MG TABLET ONE (20:02)
[2018-12-24] MEDS: DOXYCYCLINE HYCLATE 100 MG CAP PO SCH (20:03)
[2018-12-24] MEDS: TRAZODONE HCL 50 MG TAB PO SCH (23:04)
[2018-12-25] MEDS: SODIUM CHLORIDE 0.9% 1000ML 1,000 ML IV SCH (00:16)
[2018-12-25] MEDS: PANTOprazole 40 MG TAB PO SCH (08:01)
[2018-12-25] MEDS: DOXYCYCLINE HYCLATE 100 MG CAP PO SCH ×2 (08:02→21:41)
[2018-12-25] MEDS: ASPIRIN 81 MG ECTAB PO SCH (08:02)
[2018-12-25] MEDS: BuPROPion SR 150 MG TABCR PO SCH (08:02)
[2018-12-25] MEDS: ESCITALOPRAM OXALATE 20 MG TAB PO SCH (08:02)
[2018-12-25 08:34] LABS: Basophils # (auto) 0.02 K/uL (0-0.2); Basophils % (auto) 0.4 %; Eosinophils % (auto) 3.9 %; Hematocrit (blood only) 35.9 % (42-52); Lymphocytes # (auto) 1.82 K/uL (1.2-3.4); Lymphocytes % (auto) 35.9 %; Mean Corpuscular Hgb Conc 33.4 g/dL (32-36); Mean Corpuscular Volume 83.3 fL (80-100); Mean Platelet Volume 10.4 fL (7.4-10.4); Monocytes # (auto) 0.49 K/uL (0.11-0.59); Monocytes % (auto) 9.7 %; Neutrophils # (auto) 2.54 K/uL (1.4-6.5); Neutrophils % (auto) 50.1 %; Platelet Count 141 K/uL (130-400); RDW Coefficient of Variation 14.1 % (11.5-14.5); RDW Standard Deviation 43.2 fL (36.4-46.3); Red Blood Count 4.31 M/uL (4.7-6.1); White Blood Count 5.07 K/uL (4.8-10.8)
[2018-12-25 08:53] LABS: BUN Creatinine Ratio 20.2 (10-20); Calcium 8.3 mg/dl (8.5-10.1); Creatinine Clr Calc Pharmacy 103.1 ml/min; Est GFR (African American) 113.6; Magnesium 1.9 mg/dl (1.8-2.4); Potassium 4.1 mmol/L (3.5-5.1)
[2018-12-25 08:55] LABS: Troponin I 0.08 ng/ml (0-0.045)
[2018-12-25 08:58] LABS: Estimated Average Glucose 111 mg/dl; Hemoglobin A1C 5.5 % (4.5-5.6)
[2018-12-25] MEDS ORDERED: NON-FORMULARY MEDICATION (Omeprazole 40 MG) PO SCH (09:00)
--- NOTE | 2018-12-25 17:27 | Hospitalist Progress Note ---
Date of Service December 25, 2018 Assessment & Plan (1) VADIM (acute kidney injury): This is a 48-year-old male who has significant PMH of HLD, GERD, depression, history of gastric bypass, history of T2 DM resolved by gastric bypass, XANDER treated with CPAP, Red who presents to [facility] secondary to ill feeling times 4 days. He clearly seems to be secondary to profound dehydration Receiving intravenous fluid Repeat kidney function has been normal (2) Elevated troponin: No chest pain or ECG change Serial troponin did not show any significant elevation EKG remain in sinus rhythm Echocardiogram unremarkable with normal EF and no all motion abnormality (3) Tick-borne disease: Patient with known tick bite-the site of the bite noted with very small erythematous collection. Symptoms concerning for tickborne illness including malaise, arthralgias, fatigue Initial Lyme negative; however given tick bites very recent titer is likely to be negative Treat with doxycycline 100 mg p.o. twice daily times 21 days (4) HLD (hyperlipidemia): On statin (5) Depression: Mood stable, mildly anxious Continue Wellbutrin and escitalopram (6) GERD (gastroesophageal reflux disease): Hold PPI in setting of VADIM (7) History of diabetes mellitus resolved following bariatric surgery: Last A1C 5.3 09/2018 Has not taking hypoglycemic agents for 1.[address] diabetic diet A1c in am Monitor accuchecks AC/HS if okay will discontinue Patient refused to have diabetic diet We will give him regular (8) DVT prophylaxis: SCDS/encourage ambulation Pt currently low risk for VTE, reevaluate daily for need Disposition: discharge to home when able Subjective 12/25 The patient was seen and examined in medical telemetry unit Is a 48-year-old male with significant past medical history of hypertension, history of gastric bypass, Red steatohepatitis, obstructive sleep apnea and hyperlipidemia was with complaining of not feeling well for the last 4 days prior to admission Has been feeling a lot better since admission Denies any confusion or any symptoms Has been ambulating well in the Review of Systems Review of Systems: Other (All systems reviewed and are unremarkable except as noted below) Neurologic: no dizziness, no headache(s) and no confusion Physical Exam Physical Exam: No apparent distress at rest Constitutional: WD/WN, vitals as above well developed Eyes: PERRL, conjunctivae normal, anicteric sclerae ENMT: external ear and nose normal, oropharynx normal Neck: trachea midline, no thyromegaly Respiratory: normal respiratory effort and + labored breathing Auscultation: lungs clear to auscultation bilaterally Cardiovascular: Rate/Rhythm: regular rate and regular rhythm Heart Sounds: normal S1 and normal S2 Gastrointestinal (Abdomen): Inspection/Auscultation: abdomen normal to inspection and normal bowel sounds Percussion/Palpation: abdomen soft; abdomen nontender Neurologic: PERRL, EOMI, accommodation nl, no face palsy, no dysarthria Results & Data Vital Signs (Past 12 Hours) Vital Signs Temp Pulse Pulse Resp BP BP Pulse Ox 12/25/18 16:55 73 12/25/18 15:34 36.7 C 68 21 114/71 98 12/25/18 11:07 36.8 C 59 L 18 126/79 98 12/25/18 07:15 63 12/25/18 07:14 36.6 C 60 18 117/74 98 (1) Depression Active/Remission status: remission status unspecified Depression Type: major depressive disorder Major depression recurrence: unspecified whether recurrent Qualified Code(s): F32.9 - Major depressive disorder, single episode, unspecified (2) HLD (hyperlipidemia) Hyperlipidemia type: unspecified Qualified Code(s): E78.5 - Hyperlipidemia, unspecified (3) GERD (gastroesophageal reflux disease) Esophagitis presence: esophagitis presence not specified Qualified Code(s): K21.9 - Gastro-esophageal reflux disease without esophagitis
[2018-12-25] MEDS: TRAZODONE HCL 50 MG TAB PO SCH (21:41)
[2018-12-26 06:09] LABS: Basophils # (auto) 0.02 K/uL (0-0.2); Basophils % (auto) 0.3 %; Eosinophils # (auto) 0.19 K/uL (0-0.5); Eosinophils % (auto) 3.1 %; Hematocrit (blood only) 36.3 % (42-52); Hemoglobin 11.7 g/dL (14.0-18.0); Immature Granulocytes # (auto) 0.01 K/uL (0.00-0.02); Immature Granulocytes % (auto) 0.2 %; Lymphocytes # (auto) 2.59 K/uL (1.2-3.4); Lymphocytes % (auto) 41.8 %; Mean Corpuscular Hgb Conc 32.2 g/dL (32-36); Mean Corpuscular Volume 85.8 fL (80-100); Mean Platelet Volume 10.9 fL (7.4-10.4); Monocytes # (auto) 0.62 K/uL (0.11-0.59); Neutrophils # (auto) 2.76 K/uL (1.4-6.5); Neutrophils % (auto) 44.6 %; Platelet Count 164 K/uL (130-400); RDW Coefficient of Variation 14.4 % (11.5-14.5); RDW Standard Deviation 44.8 fL (36.4-46.3); Red Blood Count 4.23 M/uL (4.7-6.1); White Blood Count 6.19 K/uL (4.8-10.8)
[2018-12-26 06:37] LABS: BUN Creatinine Ratio 18.9 (10-20); Calcium 8.2 mg/dl (8.5-10.1); Creatinine Clr Calc Pharmacy 120.1 ml/min; Est GFR (African American) 123.1; Est GFR (Non-African American) 106.2; Potassium 4.2 mmol/L (3.5-5.1)
[2018-12-26] MEDS: ASPIRIN 81 MG ECTAB PO SCH (08:09)
[2018-12-26] MEDS: PANTOprazole 40 MG TAB PO SCH (08:09)
[2018-12-26] MEDS: BuPROPion SR 150 MG TABCR PO SCH (08:09)
[2018-12-26] MEDS: DOXYCYCLINE HYCLATE 100 MG CAP PO SCH (08:09)
[2018-12-26] MEDS: ESCITALOPRAM OXALATE 20 MG TAB PO SCH (08:09)
--- NOTE | 2018-12-26 11:31 | Hospitalist Progress Note ---
Date of Service December 26, 2018 Assessment & Plan (1) VADIM (acute kidney injury): This is a 48-year-old male who has significant PMH of HLD, GERD, depression, history of gastric bypass, history of T2 DM resolved by gastric bypass, XANDER treated with CPAP, Red who presents to [facility] secondary to ill feeling times 4 days. He clearly seems to be secondary to profound dehydration Receiving intravenous fluid Repeat kidney function has been normal Kidney functions remains normal Advised to drink more fluid (2) Elevated troponin: No chest pain or ECG change Serial troponin did not show any significant elevation EKG remain in sinus rhythm Echocardiogram unremarkable with normal EF and no all motion abnormality (3) Tick-borne disease: Patient with known tick bite-the site of the bite noted with very small erythematous collection. Symptoms concerning for tickborne illness including malaise, arthralgias, fatigue Initial Lyme negative; however given tick bites very recent titer is likely to be negative Treat with doxycycline 100 mg p.o. twice daily times 21 days We will continue doxycycline for a total of 21 days (4) HLD (hyperlipidemia): On statin (5) Depression: Mood stable, mildly anxious Continue Wellbutrin and escitalopram No anxiety and/or depression (6) GERD (gastroesophageal reflux disease): Hold PPI in setting of VADIM (7) History of diabetes mellitus resolved following bariatric surgery: Last A1C 5.3 09/2018 Has not taking hypoglycemic agents for 1.[address] diabetic diet A1c in am Monitor accuchecks AC/HS if okay will discontinue Patient refused to have diabetic diet We will give him regular Advised to follow-up with primary care physician for management of diabetes (8) DVT prophylaxis: SCDS/encourage ambulation Pt currently low risk for VTE, reevaluate daily for need Disposition: discharge to home when able Subjective 12/25 The patient was seen and examined in medical telemetry unit Is a 48-year-old male with significant past medical history of hypertension, history of gastric bypass, Red steatohepatitis, obstructive sleep apnea and hyperlipidemia was with complaining of not feeling well for the last 4 days prior to admission Has been feeling a lot better since admission Denies any confusion or any symptoms Has been ambulating well in the 12/26 The patient was seen and examined in medical telemetry unit He denies any symptoms today He has been ambulating well without any difficulty Will be sent home except Review of Systems Review of Systems: All systems reviewed & are unremarkable except as noted in HPI & below Neurologic: no gait abnormality, no unsteadiness, no dizziness and no confusion Physical Exam Physical Exam: No apparent distress at rest Constitutional: WD/WN, vitals as above well developed Eyes: PERRL, conjunctivae normal, anicteric sclerae ENMT: external ear and nose normal, oropharynx normal Neck: trachea midline, no thyromegaly Respiratory: normal respiratory effort and + labored breathing Auscultation: lungs clear to auscultation bilaterally Cardiovascular: Rate/Rhythm: regular rate and regular rhythm Heart Sounds: normal S1 and normal S2 Gastrointestinal (Abdomen): Inspection/Auscultation: abdomen normal to inspection and normal bowel sounds Percussion/Palpation: abdomen soft; abdomen nontender Neurologic: PERRL, EOMI, accommodation nl, no face palsy, no dysarthria Results & Data Vital Signs (Past 12 Hours) Vital Signs Temp Pulse Pulse Pulse Resp BP Pulse Ox 12/26/18 11:28 37.1 C 60 16 115/66 98 12/26/18 07:40 55 L 12/26/18 07:16 36.7 C 72 16 91/51 L 92 12/26/18 04:00 36.7 C 67 20 118/74 97 12/26/18 01:43 62 12/25/18 23:35 36.4 C L 59 L 18 109/75 98 Laboratory Results Short CBC 12/26/18 Range/Units 05:37 WBC 6.19 (4.8-10.8) K/uL Hgb 11.7 L (14.0-18.0) g/dL Hct 36.3 L (42-52) % Plt Count 164 (130-400) K/uL BMP 12/26/18 05:37 Sodium 145 Potassium 4.2 Chloride 117 H Carbon Dioxide 26 BUN 15 Creatinine 0.79 Glucose 74 Calcium 8.2 L Medications Administered Current Inpatient Medications Acetaminophen (Tylenol) 650 mg PO Q4H PRN PRN Reason: Pain or Fever Stop: 01/23/19 17:26 Aspirin (Ecotrin Ectab) 81 mg PO DAILY [facility] Stop: 01/24/19 08:59 Last Admin: 12/26/18 08:09 Dose: 81 mg Documented by: Bupropion HCl (Wellbutrin-Sr) 150 mg PO DAILY [facility] Stop: 01/24/19 08:59 Last Admin: 12/26/18 08:09 Dose: 150 mg Documented by: Dextrose (Dextrose 50%) 25 - 50 ml IV UD PRN; Protocol PRN Reason: Hypoglycemia Protocol Stop: 01/23/19 17:26 Doxycycline Hyclate (Vibramycin) 100 mg PO BID [facility]; Protocol Stop: 01/14/19 20:59 Last Admin: 12/26/18 08:09 Dose: 100 mg Documented by: Escitalopram Oxalate (Lexapro) 20 mg PO DAILY [facility] Stop: 01/24/19 08:59 Last Admin: 12/26/18 08:09 Dose: 20 mg Documented by: Glucagon (Glucagen) 1 mg SQ UD PRN; Protocol PRN Reason: Hypoglycemia Protocol Stop: 01/23/19 17:26 Glucose (Glucose 40%) 15 - 30 gm PO UD PRN; Protocol PRN Reason: Hypoglycemia Protocol Stop: 01/23/19 17:26 Glucose (Dex4 Glucose) 4 - 8 tabs PO UD PRN; Protocol PRN Reason: Hypoglycemia Protocol Stop: 01/23/19 17:26 Miscellaneous (Carbohydrates For Hypoglycemia) 15 - 30 gm PO UD PRN PRN Reason: Hypoglycemia Treatment Stop: 01/23/19 17:26 Ondansetron HCl (Zofran) 4 mg IV Q6H PRN PRN Reason: Nausea Stop: 01/23/19 17:26 Pantoprazole Sodium (Protonix) 40 mg PO DAILY [facility] Stop: 01/23/19 17:26 Last Admin: 12/26/18 08:09 Dose: 40 mg Documented by: Polyethylene Glycol (Miralax Powder Packet) 17 gm PO DAILY PRN PRN Reason: Constipation Stop: 01/23/19 17:26 Tramadol HCl (Ultram) 50 mg PO Q6H PRN PRN Reason: Pain Stop: 01/23/19 19:36 Trazodone HCl (Desyrel) 150 mg PO HS [facility] Stop: 01/24/19 20:59 Last Admin: 12/25/18 21:41 Dose: 150 mg Documented by: (1) HLD (hyperlipidemia) Hyperlipidemia type: unspecified Qualified Code(s): E78.5 - Hyperlipidemia, unspecified (2) Depression Depression Type: major depressive disorder Major depression recurrence: unspecified whether recurrent Active/Remission status: remission status unspec ified Qualified Code(s): F32.9 - Major depressive disorder, single episode, unspecified (3) GERD (gastroesophageal reflux disease) Esophagitis presence: esophagitis presence not specified Qualified Code(s): K21.9 - Gastro-esophageal reflux disease without esophagitis
--- NOTE | 2018-12-27 08:29 | Discharge Summary ---
Date of Service December 27, 2018 Admission HPI Per Admitting Provider This is a 48-year-old male who has significant PMH of HLD, GERD, depression, history of gastric bypass, history of T2 DM resolved by gastric bypass, XANDER treated with CPAP, Red who presents to [facility] secondary to ill feeling times 4 days. Patient states symptoms started approximately on Sunday when he developed ill feeling, tired, fatigued, lethargic, arthralgias. He also was nauseated and had significantly decreased appetite. He states he has not had anything to eat or drink since Sunday evening, except this morning. This morning he had a breakfast sandwich, banana & OJ. There are he complains of sweats, dizziness when going from sitting to standing quickly, allergy-like symptoms with sinus congestion and rhinorrhea, mild frontal headache, low back discomfort with movement. He denies any documented fever, chills, syncope, neck stiffness, chest pain, palpitations, shortness of breath at rest or exertion, cough, hemoptysis, emesis, diarrhea, abdominal pain, dysuria, increased urgency or frequency with urination, river hematuria. He did note this morning his urine was dark in color. He denies any recent change in medications or taking significant amount of NSAIDs. Of significant note on Sunday evening he did remove a tick from his left lateral leg. He feels it was likely present for approximately 5 days as that was the last time he was out hiking in the dawn. He describes tick as a medium size, mildly engorged. Still has redness around the tick site but no other known rash. Admission Exam Per Admitting Provider Vital Signs (Past 24 Hours): Last Vital Signs Temp 36.3 C L 12/24/18 12:56 Pulse 67 12/24/18 14:18 Resp 20 12/24/18 14:18 BP 119/72 12/24/18 14:18 Pulse Ox 98 12/24/18 14:18 Physical Exam: Gen: WD/WN, M, NAD, sitting up in bed, pleasant, conversing easily Head: Normocephalic, Atraumatic Eyes: Sclera normal, no conjunctival injection, PERRLA, EOMI ENT: Gross hearing intact, normal pharynx, mucous membranes moist Neck: supple, no adenopathy, No JVD, no bruit, Resp: Clear to auscultation b/l, no wheeze, rales, rhonchi. 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 Extremities: No edema bilaterally Skin: warm, moist, no rash, negative turgor, cap refill < 2sec, LLE lateral to knee area of tick insertion (head still present) with surrounding erythema, no pain or warmth noted Neuro: Alert and oriented x 3, speech normal, good mood/affect, cran nerve 2-12 intact grossly : deferred Principal Diagnosis Acute kidney injury-normalized, possible tickborne illness Discharge Exam Constitutional WD/WN, vitals as above well developed Eyes PERRL, conjunctivae normal, anicteric sclerae ENMT external ear and nose normal, oropharynx normal Neck trachea midline, no thyromegaly Respiratory normal respiratory effort and + labored breathing Auscultation: lungs clear to auscultation bilaterally Cardiovascular Rate/Rhythm: regular rate and regular rhythm Heart Sounds: normal S1 and normal S2 Gastrointestinal (Abdomen) Inspection/Auscultation: abdomen normal to inspection and normal bowel sounds Percussion/Palpation: abdomen soft; abdomen nontender Neurologic PERRL, EOMI, accommodation nl, no face palsy, no dysarthria Discharge Data Allergies Allergy/AdvReac Type Severity Reaction Status Date / Time fluoxetine [From Prozac] Allergy Unknown Verified 12/24/18 14:38 Consultations 12/24/18 14:34 ED Decision to Admit Stat Hospital Course (1) VADIM (acute kidney injury): This is a 48-year-old male who has significant PMH of HLD, GERD, depression, history of gastric bypass, history of T2 DM resolved by gastric bypass, XANDER treated with CPAP, Red who presents to [facility] secondary to ill feeling times 4 days. He clearly seems to be secondary to profound dehydration Receiving intravenous fluid Repeat kidney function has been normal Kidney functions remains normal Advised to drink more fluid (2) Elevated troponin: No chest pain or ECG change Serial troponin did not show any significant elevation EKG remain in sinus rhythm Echocardiogram unremarkable with normal EF and no all motion abnormality (3) Tick-borne disease: Patient with known tick bite-the site of the bite noted with very small erythematous collection. Symptoms concerning for tickborne illness including malaise, arthralgias, fatigue Initial Lyme negative; however given tick bites very recent titer is likely to be negative Treat with doxycycline 100 mg p.o. twice daily times 21 days We will continue doxycycline for a total of 21 days (4) HLD (hyperlipidemia): On statin (5) Depression: Mood stable, mildly anxious Continue Wellbutrin and escitalopram No anxiety and/or depression (6) GERD (gastroesophageal reflux disease): Hold PPI in setting of VADIM (7) History of diabetes mellitus resolved following bariatric surgery: Last A1C 5.3 09/2018 Has not taking hypoglycemic agents for 1.[address] on diabetic diet A1c in am Monitor accuchecks AC/HS if okay will discontinue Patient refused to have diabetic diet We will give him regular Advised to follow-up with primary care physician for management of diabetes (8) DVT prophylaxis: SCDS/encourage ambulation Pt currently low risk for VTE, reevaluate daily for need Disposition: discharge to home when able Total Time Total Time Spent Total Time Spent (In Minutes): 35 minutes Total Time Includes: Examination of the Patient, Discharge Planning, Medication Reconciliation and Communication With Other Providers Discharge Plan Discharge Items Patient Disposition: Home - Self-Care Reason For Visit: VADIM,TICK BORNE ILLNESS Discharge Diagnosis: Acute kidney injury-normalized, possible tickborne illness Condition: Good Discharge Goals: Decrease discomfort, Improve function and Increase independence Activity: Resume your previous activity Non-emergency contact: Primary Care Provider Call non-emergency contact if: you have any medication questions and your symptoms worsen Follow-up/Referrals: Albert Luis DO [Primary Care Provider] - 12/30/18 11:05 am Diet: Regular Fluids: 2000ml (8 cups) Addtl Provider Instructions: Keep yourself hydrated Prescriptions: New doxycycline hyclate 100 mg Capsule 100 mg PO BID 18 Days Qty: 36 RF: 0 Continued omeprazole 40 mg Capsule,Delayed Release(Dr/Ec) 40 mg PO DAILY RF: 0 aspirin 81 mg Tablet,Delayed Release (Dr/Ec) 81 mg PO DAILY RF: 0 Caltrate 600 + D 600 mg (1,500 mg)-800 unit Tablet,Chewable 1 tab PO BID RF: 0 Flintstones Complete Tablet,Chewable 1 tab PO DAILY RF: 0 bupropion HCl 150 mg tablet sustained-release 12 hr 150 mg PO DAILY RF: 0 simvastatin 40 mg Tablet 40 mg PO HS RF: 0 escitalopram oxalate 20 mg Tablet 20 mg PO DAILY RF: 0 trazodone 50 mg tablet 150 mg PO HS RF: 0 Stand-Alone Forms: [facility] Discharge Orders: Discharge Order (Routine); Ordered 12/26/18 Ordered By: Angie Burns Admission Data Admit Date/Time: 12/24/18 15:26 Attending Provider: Angie Burns Admit Provider: Jayshree Galindo Primary Care Provider: Albert Luis Other Providers: Jayshree Galindo Service: Telemetry Medical Other Interventions: Discharge Summary Assessment (RN) Last Done: 12/26/18 15:29 DC Date/Time DO NOT enter until pt leaves facility: 12/26/18 15:36
[2018-12-30 18:50] LABS: Q Fever IgG, Phase I NEGATIVE; Q Fever Phase I IgM Antibody NEGATIVE; Q Fever Phase II IgG Antibody NEGATIVE; Q Fever Phase II IgM Antibody NEGATIVE; R. typhi IgG Ab Not Detected (Not Detected); R. typhi IgM Ab Not Detected (Not Detected); RMSF IgG Ab Not Detected (Not Detected); RMSF IgM Ab Not Detected (Not Detected)
== END 2018-12-26 15:36 | disposition home or self-care (01) | DRG 683 ==
LOC: ED 12:53 → 2N 15:26